=== PATIENT | male | born 2000 | race Caucasian/White ===

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

== ENCOUNTER 2021-02-02 13:05 | Emergency (ER) | payer OTHER, BC ==
[~2021-02-02] VITALS: Ht 182.9 cm; Wt 68.2 kg
[2021-02-02 13:25] VITALS: TEMP 98.2
[2021-02-02] MEDS ORDERED: CEPHALEXIN500 M1 PO (16:05)
[2021-02-02 16:36] VITALS: BP 122/75; PULSE 79
== END 2021-02-02 16:41 | disposition home or self-care (01) ==
LOC: COL.ER 13:05
DX: S61.213A Laceration without foreign body of left middle finger without damage to nail, initial encounter (principal); S60.411A Abrasion of left index finger, initial encounter; S60.415A Abrasion of left ring finger, initial encounter; Z23 Encounter for immunization; W23.1XXA Caught, crushed, jammed, or pinched between stationary objects, initial encounter; Y99.0 Civilian activity done for income or pay

== ENCOUNTER 2024-03-30 17:15 | Emergency (ER) | payer BC ==
[~2024-03-30] VITALS: Ht 180.3 cm; Wt 68.2 kg
[~2024-03-30 17:15] MED LIST changes: +CEPHALEXIN500 M1 PO
[2024-03-30 17:24] VITALS: TEMP 97.8
[2024-03-30] MEDS ORDERED: Acetaminophen 500 MG TAB PO ONE (17:45)
[2024-03-30] MEDS ORDERED: BACTRIM DS 8001 TAB PO (19:56)
[2024-03-30 20:02] VITALS: BP 126/85; PULSE 88
== END 2024-03-30 20:00 | disposition home or self-care (01) ==
LOC: COL.ER 17:15
DX: S51.012A Laceration without foreign body of left elbow, initial encounter (principal); Z88.0 Allergy status to penicillin; W31.89XA Contact with other specified machinery, initial encounter